=== PATIENT | female | born 1990 | race Caucasian/White ===

== ENCOUNTER 2019-01-16 21:19 | Emergency (ER) | payer OTHER ==
[~2019-01-16] VITALS: Ht 175.3 cm; Wt 63.0 kg
[2019-01-16] MEDS ORDERED: ZITHROMAX500 MG (21:28)
[2019-01-16] MEDS ORDERED: DEXAMETHASONE4 MG (21:29)
[2019-01-16] MEDS ORDERED: GILTUSS (21:30)
[2019-01-16] MEDS ORDERED: PHENAGIL TABLE1 EACH (21:31)
== END 2019-01-16 22:51 | disposition home or self-care (01) ==
LOC: ER 21:19
DX: R42 Dizziness and giddiness (principal)

== ENCOUNTER 2022-09-11 16:24 | Emergency (ER) | payer OTHER ==
[~2022-09-11] VITALS: Ht 170.2 cm; Wt 64.4 kg
[~2022-09-11 16:24] MED LIST: DEXAMETHASONE4 MG; GILTUSS; PHENAGIL TABLE1 EACH; ZITHROMAX500 MG
== END 2022-09-11 19:50 | disposition home or self-care (01) ==
LOC: ER 16:24
DX: J03.80 Acute tonsillitis due to other specified organisms (principal); B96.89 Other specified bacterial agents as the cause of diseases classified elsewhere; Z91.013 Allergy to seafood

== ENCOUNTER 2023-04-29 10:03 | Emergency (ER) | payer OTHER ==
[~2023-04-29] VITALS: Ht 170.2 cm; Wt 60.8 kg
== END 2023-04-29 15:09 | disposition home or self-care (01) ==
LOC: ER 10:03
DX: T50.995A Adverse effect of other drugs, medicaments and biological substances, initial encounter (principal); F41.8 Other specified anxiety disorders; Z91.013 Allergy to seafood; E16.1 Other hypoglycemia

== ENCOUNTER 2023-05-19 10:18 | Emergency (ER) | payer OTHER ==
[~2023-05-19] VITALS: Ht 170.2 cm; Wt 61.2 kg
[2023-05-19] MEDS ORDERED: ZOLOFT25 MG (10:29)
[2023-05-19 11:15] LABS: HEMATOCRIT 33.7 % (36.0-45.00); HEMOGLOBIN 11.4 g/dL (12.0-15.00); MEAN CELL VOLUME 81.5 fL (80.00-100.00); MEAN CORPUSCULAR HEMOGLOBIN 27.5 pg (27.00-32.0); MEAN CORPUSCULAR HGB CONC 33.7 g/dl (32.0-36.0); PLATELET COUNT 225 K/uL (150-450); RED BLOOD COUNT 4.14 M/uL (4.00-6.00); RED CELL DISTRIBUTION WIDTH 18.9 % (11.5-14.5)
[2023-05-19 11:17] LABS: PH,URINE 7.5 (5.0-8.0); URINE APPEARANCE Clear; URINE BILIRRUBIN Negative (NEGATIVE); URINE BLOOD Trace; URINE COLOR Yellow; URINE GLUCOSE Negative (NEGATIVE); URINE LEUKOCYTE Small; URINE NITRATE Negative; URINE PROTEIN Negative (NEGATIVE); URINE UROBILINOGEN 0.2 E.U./dl
[2023-05-19 11:20] LABS: URINE BACTERIA 385.4 uL (0.0-1933); URINE EPITHELIAL CELLS 12.6 uL (0.0-38.8); URINE RBC 15.6 uL (0.0-20.8); URINE WBC 5.8 uL (0.0-23.2)
[2023-05-19 12:02] LABS: CALCIUM 9.1 mg/dL (8.5-10.1); CREATININE SERUM 0.6 mg/dL (0.55-1.02); GFR 115.85; POTASSIUM 4.15 mEq/L (3.5-5.1)
[2023-05-19] MEDS ORDERED: PEPCID20 MG PO (13:18)
[2023-05-19] MEDS ORDERED: ZOFRAN8 MG PO (13:18)
== END 2023-05-19 13:37 | disposition home or self-care (01) ==
LOC: ER 10:18
PROVIDERS: General Practice
DX: K29.00 Acute gastritis without bleeding (principal); Z91.013 Allergy to seafood